=== PATIENT | female | born 1980 ===

== ENCOUNTER 2018-06-07 13:30 | Emergency (ER) | payer OTHER ==
--- NOTE | 2018-06-07 14:22 | ED PDOC ---
Arrival/HPI - General Chief Complaint: Cough, Cold, Congestion Time Seen by Provider: 06/07/18 14:11 Historian: Patient, Family - History of Present Illness Narrative History of Present Illness (Text): 06/07/18 14:22 A 38 year old female with no past medical history presents to the emergency department accompanied by family complaining of coughing and nasal congestion since yesterday. Patient reports associated dry throat, body aches, and fever at home. Patient notes she has recently travelled in the last 3 months to the [facility]. Patient denies any fever, chills, shortness of breath, chest pain, diarrhea, nausea, vomiting, urinary symptoms, back pain, neck pain, headache, dizziness, or any other complaints. No PMD Time/Duration: 24 hours (since yesterday) Symptom Onset: Gradual Symptom Course: Unchanged Severity Level: Moderate Activities at Onset: Light Context: Home Past Medical History - Provider Review Nursing Documentation Reviewed: Yes - Cardiac Hx Cardiac Disorders: No - Pulmonary Hx Respiratory Disorders: No - Neurological Hx Neurological Disorder: No - HEENT Hx HEENT Disorder: No - Renal Hx Renal Disorder: No - Endocrine/Metabolic Hx Endocrine Disorders: No - Hematological/Oncological Hx Blood Disorders: No - Integumentary Hx Dermatological Disorder: No - Musculoskeletal/Rheumatological Hx Musculoskeletal Disorders: No - Gastrointestinal Hx Gastrointestinal Disorders: No - Genitourinary/Gynecological Hx Genitourinary Disorders: No - Psychiatric Hx Psychophysiologic Disorder: No Hx Substance Use: Yes - Surgical History Hx Section: Yes Family/Social History - Physician Review Nursing Documentation Reviewed: Yes Family/Social History: Unknown Family HX Smoking Status: Never Smoked Hx Alcohol Use: No Hx Substance Use: Yes Allergies/Home Meds Allergies/Adverse Reactions: Allergies No Known Allergies Allergy (Verified 06/07/18 13:57) Home Medications: Home Meds Medication Instructions Recorded Confirmed No Known Home Med 06/07/18 06/07/18 Review of Systems - Physician Review All systems were reviewed & negative as marked: Yes - Review of Systems Constitutional: Fevers. absent: Night Sweats ENT: Sinus Congestion, Other (Dry throat) Respiratory: Cough. absent: SOB Cardiovascular: absent: Chest Pain Gastrointestinal: absent: Diarrhea, Nausea, Vomiting Genitourinary Female: absent: Urine Output Changes Musculoskeletal: absent: Back Pain, Neck Pain Neurological: absent: Headache, Dizziness Physical Exam Vital Signs Reviewed: Yes Vital Signs Temp Pulse Resp BP Pulse Ox 06/07/18 13:57 100.6 F H 103 H 17 129/87 98 Temperature: Febrile Blood Pressure: Normal Pulse: Tachycardic Respiratory Rate: Normal Appearance: Positive for: Well-Appearing, Non-Toxic Pain Distress: None Mental Status: Positive for: Alert and Oriented X 3 - Systems Exam Head: Present: Atraumatic, Normocephalic Pupils: Present: PERRL Extroacular Muscles: Present: EOMI Conjunctiva: Present: Normal Mouth: Present: Moist Mucous Membranes Neck: Present: Normal Range of Motion Respiratory/Chest: Present: Clear to Auscultation, Good Air Exchange. No: Respiratory Distress, Accessory Muscle Use Cardiovascular: Present: Regular Rate and Rhythm, Normal S1, S2. No: Murmurs Abdomen: Present: Tenderness (+diffused tenderness across chest, back, and abdomen ). No: Distention, Normal Bowel Sounds, Peritoneal Signs, Rebound, Guarding, McBurney's Point Tender, Hernias, Feeding Tubes, Ostomy Tubes, Mass/Organomegaly, Scars Back: Present: Normal Inspection Upper Extremity: Present: Normal Inspection. No: Cyanosis, Edema Lower Extremity: Present: Normal Inspection. No: Edema Neurological: Present: GCS=15, CN II-XII Intact, Speech Normal Skin: Present: Warm, Dry, Normal Color. No: Rashes Psychiatric: Present: Alert, Oriented x 3, Normal Insight, Normal Concentration Medical Decision Making ED Course and Treatment: 06/07/18 14:22 Impression: 38 year old patient presenting to the emergency department complaining of cough and nasal congestion. Differential Diagnosis included but are not limited to: viral syndrome Plan: -- VBG -- Labs -- CBC -- Tylenol -- IV fluids -- Blood culture -- Urine culture -- Rapid Flu -- Urinalysis -- Reassess and disposition Progress Notes: 06/07/18 17:07 Procedure: Chest X-ray Impression: No focal consolidation, significant pleural effusion, or definite pneumothorax identified. Dictator: Camille Gallegos MD 06/07/18 17:28 Patient continues to have abdominal pain diffusely but more so in the right side. Abdomen is soft, nondistended. +right sided tenderness. CT abd/pelv r/o appy. 06/07/18 18:13 Case signed out to Dr. Clover Poe to f/u CT, reevaluate and disposition. - Scribe Statement The provider has reviewed the documentation as recorded by the Scribe Maxine Ha All medical record entries made by the Scribe were at my direction and personally dictated by me. I have reviewed the chart and agree that the record accurately reflects my personal performance of the history, physical exam, medical decision making, and the department course for this patient. I have also personally directed, reviewed, and agree with the discharge instructions and disposition. Disposition/Present on Arrival - Present on Arrival Any Indicators Present on Arrival: No History of DVT/PE: No History of Uncontrolled Diabetes: No Urinary Catheter: No History of Decub. Ulcer: No History Surgical Site Infection Following: None - Disposition Have Diagnosis and Disposition been Completed?: No Diagnosis: Viral syndrome, Abdominal pain Disposition Time: 18:13 Condition: GOOD Referrals: PCP,NO [Primary Care Provider] - Follow up with primary Forms: [employer] ([place]oz[place]ican)
[2018-06-07] MEDS ORDERED: Sodium Chloride 0.9% 1,000 ML IV STA (14:25)
[2018-06-07 15:20] LABS: VENOUS BLOOD GAS BASE EXCESS 0.8 mmol/L (0.0-2.0); VENOUS BLOOD GAS PO2 43 mm/Hg (30-55)
[2018-06-07 15:26] LABS: BASO # 0.02 K/mm3 (0.0-2.0); BASO % 0.4 % (0.0-3.0); EOS % 0.4 % (1.5-5.0); GRAN # 2.77 (1.4-6.5); GRAN % 57.8 % (50.0-68.0); HEMOGLOBIN 12.6 g/dL (12.0-16.0); LYMPH # 1.6 (1.2-3.4); LYMPH % 32.8 % (22.0-35.0); MEAN CORPUSCULAR HEMOGLOBIN 29.2 pg (25.0-35.0); MEAN CORPUSCULAR HGB CONC 33.6 g/dl (31.0-37.0); MEAN PLATELET VOLUME 9.9 fl (7.0-11.0); MONO # 0.4 (0.1-0.6); MONO % 8.6 % (1.0-6.0); RBC 4.31 10^6/uL (3.5-6.1); RED CELL DISTRIBUTION WIDTH 13.2 % (11.5-14.5); WHITE BLOOD COUNT 4.8 10^3/ul (4.5-11.0)
[2018-06-07 15:36] LABS: ALBUMIN 4.1 g/dL (3.0-4.8); BLOOD UREA NITROGEN 11 mg/dL (7-21); CALCIUM 8.9 mg/dL (8.4-10.5); GFR NON-AFRICAN AMERICAN > 60
[2018-06-07 15:37] LABS: ALB/GLOB RATIO 1.2 (1.1-1.8); ALT/SGPT 42 U/L (7-56); AST/SGOT 42 U/L (14-36)
[2018-06-07 16:40] LABS: URINE APPEARANCE CLEAR (CLEAR); URINE BILIRUBIN NEGATIVE (NEGATIVE); URINE BLOOD SMALL (NEGATIVE); URINE COLOR LIGHT YELLOW (YELLOW); URINE GLUCOSE (UA) NEGATIVE (NEGATIVE); URINE LEUKOCYTE ESTERASE TRACE Leu/uL (NEGATIVE); URINE PROTEIN NEGATIVE mg/dL (<30 mg/dL); URINE UROBILINOGEN 0.2 E.U./dL (<1 E.U./dL)
--- NOTE | 2018-06-07 16:44 | RAD ---
HISTORY: cough r/o pna COMPARISON: None available. TECHNIQUE: Chest PA and lateral FINDINGS: LUNGS: No focal consolidation. Please note that chest x-ray has limited sensitivity for the detection of pulmonary masses. PLEURA: No significant pleural effusion identified. No definite pneumothorax . CARDIOVASCULAR: Heart size appears top normal. OSSEOUS STRUCTURES: Degenerative changes of the spine. VISUALIZED UPPER ABDOMEN: Unremarkable. OTHER FINDINGS: None. IMPRESSION: No focal consolidation, significant pleural effusion, or definite pneumothorax identified.
[2018-06-07 16:55] LABS: URINE BACTERIA NEG (NEG); URINE EPITHELIAL CELLS 0 - 2 /hpf (0-5); URINE RBC 0 - 2 /hpf (0-2); URINE WBC 0 - 2 /hpf (0-6)
[2018-06-07] MEDS ORDERED: Iohexol 350 MG/100 ML VIAL ONE (17:31)
--- NOTE | 2018-06-07 18:43 | CT ---
Date of service: 06/07/2018 PROCEDURE: CT Abdomen and Pelvis with contrast HISTORY: abd pain r/o appy COMPARISON: None. TECHNIQUE: Following the intravenous administration of iodinated contrast material, a CT examination of the abdomen and pelvis performed from the domes of the diaphragms to the symphysis pubis with reformatted datasets provided in axial, sagittal and coronal planes. Oral contrast was not administered as per referring physician request. Coronal and sagittal reformats were generated. contrast dose: Omnipaque 350, 100 Radiation dose: Total exam DLP = 1106.84 mGy-cm. This CT exam was performed using one or more of the following dose reduction techniques: Automated exposure control, adjustment of the mA and/or kV according to patient size, and/or use of iterative reconstruction technique. FINDINGS: LOWER THORAX: There is a small calcification measuring 6 mm at the inferior middle mediastinum lateral to the right of the esophagus probably reflecting granuloma or calcified lymph node. Calcification within the esophageal diverticulum is also possible. Neuroenteric lesion not favored. Trace pericardial fluid or thickening noted at the base of the heart. No pleural effusion bilaterally. LIVER: Unremarkable. No gross lesion or ductal dilatation. GALLBLADDER AND BILE DUCTS: Trace cholelithiasis not excluded at the gallbladder neck. PANCREAS: Unremarkable. No gross lesion or ductal dilatation. SPLEEN: Unremarkable. ADRENALS: Unremarkable. No mass. KIDNEYS AND URETERS: Unremarkable. No hydronephrosis. No solid mass. VASCULATURE: Unremarkable. No aortic aneurysm. BOWEL: Evaluation of the gastrointestinal tract is limited due to the lack of oral contrast administration. No bowel obstruction appreciated. No pericolic or perienteric reactive change to suggest enteritis or colitis segmentally or diffusely. Limited fecal loading is seen in the right hemicolon. Scattered left colonic diverticular are identified without diverticulitis. APPENDIX: Normal appendix. PERITONEUM: Unremarkable. No free fluid. No free air. LYMPH NODES: Unremarkable. No enlarged lymph nodes. BLADDER: Unremarkable. REPRODUCTIVE: 1.9 cm left adnexal cyst. Nodular peripheral changes seen related to the uterus which also enhances in the subtle inhomogeneous fast suspicious for fibroid uterine disease. No suspicious right ovarian changes. BONES: Nonaggressive cystic lesion posterior right iliac bone. OTHER FINDINGS: None. IMPRESSION: 1. No CT evidence of appendicitis. 2. Nonacute left colonic diverticular changes. 3. Trace cholelithiasis question at the gallbladder neck. Moderate gallbladder distention. No mural thickening or pericholecystic fluid collection identified. No CT evidence of biliary tree dilatation grossly. 4. 1.9 cm left adnexal cyst and likely moderate uterine fibroid changes.
[2018-06-07 19:21] VITALS: BP 133/75; PULSE 85; RESP 18; TEMP 98.7; O2SAT 99
== END 2018-06-07 19:30 | disposition home or self-care (01) ==
LOC: ED 13:30
DX: B34.9 Viral infection, unspecified (principal); R10.9 Unspecified abdominal pain
CPT/HCPCS: 71046; 74177; 80053; 81001; 82803; 83735; 85025; 87040; 87086; 87804; 99283; J7030; Q9967